=== PATIENT | female | born 2000 | race American Indian/Alaskan Native ===

== ENCOUNTER 2018-02-07 14:57 | Emergency (ER) | payer MEDICAID ==
[2018-02-07 16:24] LABS: Bacteria,Urine 4+ /HPF (Negative); Bilirubin,Urine NEG (Negative); Blood,Urine MOD (Negative); Color,Urine Yellow (Yellow); Hyaline Casts,Urine 4 /LPF; Mucus,Urine FEW /HPF; Urobilinogen,Urine < 2.0 mg/dL (<2.0)
[2018-02-07 16:28] LABS: Protein,Urine >500 mg/dL (Negative)
[2018-02-07 16:29] LABS: WBC,Urine > 182.0 /HPF (0.0-6.0)
[2018-02-07] MEDS ORDERED: ROCEPHIN IM ONE (20:01)
[2018-02-07] MEDS ORDERED: XYLOCAINE 1% MPF 5 mL INFILTRATI ONE (20:02)
[2018-02-07] MEDS ORDERED: ZITHROMAX PO ONE (20:02)
[2018-02-07] MEDS ORDERED: FLAGYL PO ONE (20:02)
--- NOTE | 2018-02-07 20:07 | Emergency Department Report ---
HPI - General Chief Complaint: Urogenital-Female Time Seen by Provider: 02/07/18 19:09 - HPI HPI: Patient is a 17-year-old female presents today complaining of urinary frequency and pain with urination the past week. Patient states last menstrual period was 01/15/2018. She denies vaginal discharge, vaginal itching or dyspareunia pelvic pain. She also denies nausea/vomiting/fever or any other problems. ED Past Medical Hx - Past Medical History Previous Medical History?: Yes Additional medical history: Left knee pain. lupus - Surgical History Past Surgical History?: No - Social History Smoking Status: Never Smoker Substance Use Type: None - Medications Home Medications: Home Medications Medication Instructions Recorded Confirmed Last Taken Type Ibuprofen [Motrin] 600 mg PO Q6H PRN #20 tablet 04/14/14 Unknown Rx Fluconazole [Diflucan TAB] 150 mg PO ONCE #1 tablet 02/07/18 Unknown Rx Sulfamethoxazole/Trimethoprim 1 each PO BID #14 tablet 02/07/18 Unknown Rx [Bactrim DS TAB] ED Review of Systems ROS: Stated complaint: LUPUS FLARE UP Other details as noted in HPI Constitutional: denies: chills, fever Eyes: denies: eye pain, eye discharge, vision change ENT: denies: ear pain, throat pain Respiratory: denies: cough, shortness of breath, wheezing Cardiovascular: denies: chest pain, palpitations Endocrine: no symptoms reported Gastrointestinal: denies: abdominal pain, nausea, diarrhea Genitourinary: dysuria, frequency. denies: urgency, hematuria, discharge, dyspareunia Musculoskeletal: denies: back pain, joint swelling, arthralgia Skin: denies: rash, lesions Neurological: denies: headache, weakness, paresthesias Psychiatric: denies: anxiety, depression Hematological/Lymphatic: denies: easy bleeding, easy bruising Physical Exam - Physical Exam Vital Signs: Vital Signs 02/07/18 15:46 Temperature 98.3 F Pulse Rate 93 H Respiratory 18 Rate Blood Pressure 149/93 O2 Sat by Pulse 97 Oximetry Physical Exam: GENERAL: Alert and oriented x3, no apparent distress, Normal Gait, atraumatic. HEAD: Head is normocephalic and a-traumatic. NECK: Supple. Non edematous, . No lymphadenopathy or thyromegaly. No C-spine tenderness LUNGS: Symetrical with respiration, No wheezing, no rales or crackles, CTAB. HEART: S1, S2 present, regular rate and rhythm without murmur, no rubs, no gallops. Non tender to palpation ABDOMEN: No organomegaly was noted,Positive bowel sounds, soft, and non- distended. . Nontender to palpation on all Quadrants, NO CVA tenderness. GENITOURINARY: External genitalia without erythema, exudate or discharge. SKIN: Warm and dry, No lesions, No ulceration or induration present. ED Course Vital Signs 02/07/18 15:46 Temperature 98.3 F Pulse Rate 93 H Respiratory 18 Rate Blood Pressure 149/93 O2 Sat by Pulse 97 Oximetry ED Medical Decision Making - Medical Decision Making 17-year-old female presents with acute cystitis ED course: Urinalysis is positive for yeast, bacteria, white blood cell. I discussed his findings with the patient. I discussed the patient that I would prophylaxis a treat her for STD exposure. Patient will be going home with antibiotics and Diflucan for a cystitis I discussed the patient follow-up with gynecology/primary care physician Vital signs are normal patient is in no acute distress discussed the patient she has worsening symptoms to return to ED immediately. Critical care attestation.: If time is entered above; I have spent that time in minutes in the direct care of this critically ill patient, excluding procedure time. ED Disposition Clinical Impression: Yeast cystitis Acute cystitis Qualifiers: Hematuria presence: with hematuria Qualified Code(s): N30.01 - Acute cystitis with hematuria Disposition: - TO HOME OR SELFCARE Is pt being admited?: No Does the pt Need Aspirin: No Condition: Stable Instructions: Urinary Tract Infection in Women (ED), Sexually Transmitted Diseases (ED), Safe Sex (ED) Additional Instructions: Make sure to follow up with the primary care physician as discussed. Take all your medications as you've been prescribed. If you have any worsening symptoms or develop new symptoms please return to ED immediately. Prescriptions: Fluconazole [Diflucan TAB] 150 mg PO ONCE #1 tablet Sulfamethoxazole/Trimethoprim [Bactrim DS TAB] 1 each PO BID #14 tablet Referrals: HECTOR PRATT MD [Primary Care Provider] - 3-[address] MD [Referring] - 3-5 Days [facility] [Outside] - 3-5 Days [facility] [Outside] - 3-5 Days Forms: Accompanied Note, Work/School Release Form(ED) Time of Disposition: 20:13
[2018-02-07 20:51] VITALS: BP 118/78
== END 2018-02-07 20:51 | disposition home or self-care (01) ==
LOC: ED 14:57
DX: N30.00 Acute cystitis without hematuria (principal)
CPT/HCPCS: 81001; 96372; 99283; J0696